=== PATIENT | male | born 1990 | race African-American/Black ===

== ENCOUNTER 2022-05-22 03:11 | Emergency (ER) | payer OTHER ==
[~2022-05-22] VITALS: Ht 182.9 cm; Wt 105.0 kg
[2022-05-22 03:19] VITALS: BP 138/100
[2022-05-22] MEDS ORDERED: DEXAMETHASONE 10 MG/ML VIAL IM ONE (05:45)
== END 2022-05-22 05:40 | disposition home or self-care (01) ==
LOC: ER 03:11
DX: M10.071 Idiopathic gout, right ankle and foot (principal)
CPT/HCPCS: 96372; 99283; J1100; Z7610